=== PATIENT | male | born 1975 | race Hispanic/Latino ===

== ENCOUNTER 2017-12-26 15:15 | Outpatient (CLI) | payer OTHER ==
--- NOTE | 2017-12-26 17:22 | RAD ---
RIGHT KNEE 2 VIEWS: Date: 12/26/17 HISTORY: Right medial knee pain. FINDINGS/IMPRESSION: No fracture, dislocation, or bony destruction is seen. POS: ROSIO
== END 2017-12-26 15:16 | disposition home or self-care (01) ==
LOC: NAV RAD 15:15
PROVIDERS: ATTEND Nurse Practitioner Family
DX: M25.561 Pain in right knee (principal)

== ENCOUNTER 2018-01-27 14:23 | Outpatient (CLI) | payer OTHER ==
--- NOTE | 2018-01-27 15:05 | RAD ---
LEFT WRIST THREE VIEWS: History: 42-year-old male with history of left wrist pain. FINDINGS: There is evidence of a transverse fracture through the proximal third of the navicular bone which swati ears to be well corticated and possibly minimal sclerotic. There does appear to be some sclerosis of the proximal navicular fragment raising concern for the possibility of developing avascular necrosis. IMPRESSION: Well circumscribed somewhat sclerotic margin transverse fracture through the proximal third of the na vicular bone which is not healed, but has an appearance that is not acute. Sclerosis in the proximal navicular fragment raising concern for avascular necrosis. Outpatient orthopedic consultation in this regard should be considered. Positive ulnar variance. Code T POS: ROSIO
--- NOTE | 2018-01-27 15:08 | RAD ---
LEFT FOOT THREE VIEWS: History: Left foot pain. FINDINGS/IMPRESSION: No fracture, dislocation, or bony destruction is seen.
--- NOTE | 2018-01-27 16:46 | RAD ---
LEFT FOOT THREE VIEWS: HISTORY: A 42-year-old male with a history of left foot pain. FINDINGS: No fracture, dislocation, or other significant acute osseous abnormality. POS: ARABELLAH
== END 2018-01-27 14:24 | disposition home or self-care (01) ==
LOC: NAV RAD 14:23
PROVIDERS: ATTEND Nurse Practitioner Family
DX: M25.532 Pain in left wrist (principal); M79.674 Pain in right toe(s); M79.675 Pain in left toe(s); S62.032A Displaced fracture of proximal third of navicular [scaphoid] bone of left wrist, initial encounter for closed fracture; M89.9 Disorder of bone, unspecified